=== PATIENT | male | born 1995 | race Hispanic/Latino ===

== ENCOUNTER 2017-06-07 19:38 | Emergency (ER) | payer OTHER ==
[2017-06-07] MEDS ORDERED: Famotidine/PF 20 mg/2ml Vial ONE (19:46)
[2017-06-07] MEDS ORDERED: diphenhydrAMINE HCl 50 MG/ML 1 ML VIAL ONE (19:46)
[2017-06-07] MEDS ORDERED: methylPREDNISolone Sod Succ/PF 125 MG/2 ML VIAL ONE (19:46)
[2017-06-07 20:12] LABS: Anion Gap 18 mmol/L (10-20); BUN (Urea Nitrogen) 16 mg/dL (8.9-20.6); CK (CPK) 111 U/L (30-200); Calc. Creatinine Clearance 0 mL/min (70-130); Calcium 10.2 mg/dL (7.8-10.44); Carbon Dioxide 26 mmol/L (22-29); Chloride 103 mmol/L (98-107); Estimated GFR-MDRD 56
[2017-06-07 20:12] LABS: Bilirubin Negative (Negative); Blood, Urine Negative (Negative); Glucose, Urine (Dipstick) Negative (Negative); Ketone, Urine Negative (Negative); Nitrite Negative (Negative); Protein, Urine (Dipstick) 30 mg/dL (Neg-Trace); Urobilinogen 0.2 mg/dL (0.2-1.0)
[2017-06-07 20:17] LABS: Band 2 % (5-11); Hematocrit 48.5 % (42.0-52.0); Mean Platelet Volume 7.5 fL (7.4-10.4); Neutrophil 20 % (42-75); Reactive Lymphocytes 11 % (0-10); Red Blood Cell (RBC) Count 5.94 mill/uL (4.70-6.10); White Blood Cell (WBC) Count 9.1 thou/uL (4.8-10.8)
[2017-06-07 20:19] LABS: Bacteria/HPF 1+ HPF (None Seen); RBC/HPF None Seen HPF (0-3); Squamous Epithelial 0-3 HPF (0-3); WBC/HPF None Seen HPF (0-3)
[2017-06-07 20:22] LABS: Amphetamine Not Detected (NotDetected); Methadone Not Detected (NotDetected); Methamphetamine Not Detected (NotDetected)
== END 2017-06-07 21:48 | disposition home or self-care (01) ==
LOC: SCSER 19:38
DX: T78.40XA Allergy, unspecified, initial encounter (principal); R21 Rash and other nonspecific skin eruption
CPT/HCPCS: 80048; 80306; 81003; 81015; 82550; 85025; 93005; 96361; 96374; 96375; J1200; J2930; S0028